=== PATIENT | female | born 1975 | race Caucasian/White ===

== ENCOUNTER → 2018-03-16 | Outpatient (CLI) | payer BC ==
[2018-03-16 09:17] LABS: Basophils % (A) 0 %; Eosinophils # (A) 0.1 k/uL (0-0.7); Eosinophils % (A) 2 %; HCT 40.4 % (34.0-46.0); HGB 12.9 gm/dL (11.4-16.0); Lymphocytes # (A) 1.4 k/uL (1.0-4.8); Lymphocytes % (A) 23 %; MCH 30.5 pg (25.0-35.0); MCV 95.1 fL (80.0-100.0); Mean Platelet Volume 6.3; Monocytes # (A) 0.5 k/uL (0-1.0); Monocytes % (A) 8 %; Neutrophils # (A) 4.1 k/uL (1.3-7.7); Neutrophils % (A) 65 %; Platelet Count 307 k/uL (150-450); RBC 4.25 m/uL (3.80-5.40); RDW 13.5 % (11.5-15.5); WBC 6.2 k/uL (3.8-10.6)
[2018-03-16 09:34] LABS: Anion Gap 11 mmol/L; Blood Urea Nitrogen 13 mg/dL (7-17); Carbon Dioxide 23 mmol/L (22-30); Chloride 108 mmol/L (98-107); Glucose 101 mg/dL (74-99); Potassium 4.2 mmol/L (3.5-5.1); Sodium 142 mmol/L (137-145)
== END | disposition home or self-care (01) ==
LOC: LABPAT 08:41
PROVIDERS: ATTEND Obstetrics & Gynecology
DX: Z01.812 Encounter for preprocedural laboratory examination (principal); N94.6 Dysmenorrhea, unspecified; N93.8 Other specified abnormal uterine and vaginal bleeding
CPT/HCPCS: 36415; 80051; 82565; 82947; 84520; 85025; 87086

== ENCOUNTER 2018-03-23 07:22 | Observation (INO) | payer BC ==
[2018-03-11 15:35] VITALS: BMI 37.5
[~2018-03-23 07:22] MED LIST: DEXAMETHASONE SOD PHOSPHATE 10 MG/ML 1 ML VIAL IV ONE; MIDAZOLAM 2 MG/2 ML VIAL IV PRN; ONDANSETRON 4 MG/2 ML VIAL IVP ONE; SCOPOLAMINE 1.5MG/72HR PATCH TRANSDERM ONE; ceFAZolin IN SWFI 2 GM/20 ML SYRINGE IVP ONE; fentaNYL (PF) 50 MCG/ML 2 ML AMP IV PRN
[2018-03-23] MEDS ORDERED: LIDOCAINE 1% 20 ML VIAL (10MG/ML) FOR IV START INTRADERMA ONE (08:03)
[2018-03-23] MEDS: LACTATED RINGERS 1,000 ML IV SCH ×2 (08:03→21:46)
[2018-03-23] MEDS ORDERED: fentaNYL (PF) 50 MCG/ML 2 ML AMP IV ONE (08:19)
[2018-03-23] MEDS ORDERED: diphenhydrAMINE 50 MG/ML 1 ML VIAL IVP ONE (08:50)
[2018-03-23] MEDS ORDERED: diphenhydrAMINE 50 MG/ML 1 ML VIAL IVP PRN (09:00)
[2018-03-23] MEDS ORDERED: HYDROmorphone 0.5 MG/0.5 ML SYRINGE IVP PRN (09:00)
[2018-03-23] MEDS ORDERED: ONDANSETRON 4 MG/2 ML VIAL IVP PRN ×2 (09:00→11:25)
[2018-03-23] MEDS ORDERED: NALOXONE 0.4 MG/ML 1 ML VIAL IV PRN (09:00)
[2018-03-23] MEDS ORDERED: GLYCOPYRROLATE 0.2 MG/ML 2 ML VIAL ONE (09:57)
[2018-03-23] MEDS ORDERED: MIDAZOLAM 2 MG/2 ML VIAL ONE (09:57)
[2018-03-23] MEDS ORDERED: ROCURONIUM BROMIDE 10 MG/ML 10 ML VIAL IV ONE (09:57)
[2018-03-23] MEDS ORDERED: LIDOCAINE 1% INJ 10MG/ML (20 ML MDV) ONE (09:57)
[2018-03-23] MEDS ORDERED: NEOSTIGMINE 1 MG/ML 10 ML VIAL ONE (09:57)
[2018-03-23] MEDS ORDERED: PROPOFOL 10 MG/ML 20 ML VIAL IV ONE (09:57)
[2018-03-23] MEDS ORDERED: SUCCINYLCHOLINE CHLORIDE 100 MG/5 ML SYR IV ONE (09:57)
[2018-03-23] MEDS ORDERED: KETOROLAC 30 MG/ML 1 ML VIAL ONE (09:57)
[2018-03-23] MEDS ORDERED: fentaNYL (PF) 50 MCG/ML 2 ML AMP ONE (09:57)
[2018-03-23] MEDS ORDERED: VASOPRESSIN 20 UNIT/ML 1 ML VIAL IV ONE (10:16)
[2018-03-23] MEDS ORDERED: BACITRACIN 500 UNIT/GM OINT 28.4 GM TUBE TOPICAL ONE (11:00)
--- NOTE | 2018-03-23 11:08 | P.OP ---
Date of Procedure: 03/23/18 Preoperative Diagnosis: Dysfunctional uterine bleeding Postoperative Diagnosis: Same Procedure(s) Performed: Total vaginal hysterectomy Surgeon: Adamaris French Subcontract Administrator #1: Latrell Miles Estimated Blood Loss (ml): 25 IV fluids (ml): 700 Urine output (ml): 100 Pathology: other (Uterus) Condition: stable Disposition: PACU Indications for Procedure: dysfunctional uterine bleeding Operative Findings: Normal appearing uterus. Neither ovary visualized vaginally. Second-degree cystocele Description of Procedure: After the patient was met in the preoperative holding area and all questions were answered, she was taken the operating room where anesthetic was administered without incident. She was in positioned, prepped and draped in lithotomy position. Bladder was drained for approximately 100 mL of clear urine. Weighted speculum was placed in the vagina and the cervix was grasped anteriorly with a single-tooth tenaculum. Dilute vasopressin solution was infused in the vaginal mucosa circumferentially about the cervix. Scalpel was then utilized to make a circumferential incision about the vaginal mucosa and cervix. The anterior and posterior vaginal mucosa with and bluntly away from the underlying cervix. The posterior peritoneum was entered sharply. Small speculum was removed and long weighted speculum was placed. Anterior vaginal mucosa was further dissected away from the cervix without difficulty. Kathleen clamps were utilized to clamp cut and suture ligated the uterosacral ligaments bilaterally. 0 Vicryl suture was utilized throughout. These were tagged. The bladder was further dissected anteriorly and the uterine vasculature was then clamped cut and suture ligated bilaterally. Additional bites were taken on either side with Kathleen clamps to allow for delivery of the posterior fundus. A window was made in the anterior peritoneum. Kathleen clamps were utilized to clamp both cornua and the specimen was amputated. 0 Vicryl suture was then utilized to doubly suture ligate each cornual pedicle. An additional okufem-de-hnmum suture was placed in the right pedicle area for hemostasis which was then noted Long weighted speculum was removed and short weighted speculum was placed. The peritoneum was closed in a pursestring fashion with 2-0 Vicryl suture. The uterosacral ligaments were then reapproximated in the midline incorporating the vaginal cuff. The cuff was then closed in an interrupted fashion anteriorly to posteriorly. Hemostasis was noted. The vagina was packed with bacitracin-soaked 2 inch bandage. Lorenzo catheter was replaced on the bladder and clear urine was noted. All counts reported to me as correct by the operating staff and the patient was awoken from anesthetic without incident and transported recovery area in stable condition.
[2018-03-23] MEDS ORDERED: NALBUPHINE 10 MG/ML VIAL (10ML MDV) IV ONE (11:22)
[2018-03-23] MEDS ORDERED: Acetaminophen-Codeine 300-30mg TAB PO PRN ×2 (11:25)
[2018-03-23] MEDS ORDERED: METOCLOPRAMIDE 5 MG/ML 2 ML VIAL IVP PRN (11:25)
[2018-03-23] MEDS ORDERED: IBUPROFEN 600 MG TAB PO PRN (11:25)
[2018-03-23] MEDS ORDERED: ALPRAZolam 0.25 MG TAB PO PRN (11:25)
[2018-03-23] MEDS ORDERED: SIMETHICONE 80 MG CHEWABLE PO PRN (11:25)
[2018-03-23] MEDS ORDERED: LACTATED RINGERS 1,000 ML IV ONE ×2 (11:57)
[2018-03-23] MEDS ORDERED: ACETAMINOPHEN IV (For NPO) 1,000 MG in EMPTY BAG 1 BAG IVPB ONE (12:00)
[2018-03-23] MEDS: diphenhydrAMINE 50 MG/ML 1 ML VIAL IVP PRN ×2 (15:54→21:47)
[2018-03-23] MEDS: KETOROLAC 30 MG/ML 1 ML VIAL IVP PRN (18:18)
[2018-03-23] MEDS: SENNOSIDES-DOCUSATE SODIUM 1 EACH TAB PO SCH (19:38)
[2018-03-23] MEDS: SYMBICORT 80-4.5 MCG INHALER INHALATION SCH (20:39)
[2018-03-23] MEDS ORDERED: MONTELUKAST 10 MG TAB PO SCH (21:00)
[2018-03-24] MEDS: KETOROLAC 30 MG/ML 1 ML VIAL IVP PRN ×2 (00:01→05:52)
[2018-03-24] MEDS: FLUTICASONE 50MCG/SPRAY NASAL 16GM EA NOSTRIL SCH ×2 (04:30→09:50)
[2018-03-24] MEDS: SENNOSIDES-DOCUSATE SODIUM 1 EACH TAB PO SCH ×2 (04:31→09:49)
[2018-03-24] MEDS: LACTATED RINGERS 1,000 ML IV SCH ×2 (06:16→07:00)
[2018-03-24] MEDS: SYMBICORT 80-4.5 MCG INHALER INHALATION SCH (07:10)
--- NOTE | 2018-03-24 08:37 | P.DS ---
Providers Date of admission: 03/24/18 01:44 Expected date of discharge: 03/24/18 Attending physician: Adamaris French Primary care physician: Poly Sandoval - Discharge Diagnosis(es) (1) Dysfunctional uterine bleeding Current Visit: Yes Status: Acute Hospital Course: 42 year old women admitted for TVH due to DUB on 03/23/18. Findings per Op Note. Post op course unremarkable. Evening of POD 0 able to ambulate and tolerate normal diet. Morning of POD1 able to void with catheter out and no vaginal bleeding. Pain well controlled. Labs pending. Plan for D/C home with instructions later in day. Plan - Discharge Summary Discharge Rx Participant: Yes New Discharge Prescriptions: New Ibuprofen [Motrin] 800 mg PO Q8HR PRN #30 tab PRN Reason: Pain No Action Sertraline [Zoloft] 25 mg PO DAILY Loratadine [Claritin] 10 mg PO DAILY ALPRAZolam [Xanax] 0.25 mg PO HS PRN PRN Reason: sleep Montelukast [Singulair] 10 mg PO HS Methylphenidate HCl [Ritalin] 10 mg PO BID Fluticasone/Salmeterol [Advair 250-50 Diskus] 2 inhalation PO BID Fluticasone Nasal [place] [Flonase Nasal [place]] 2 spr EA NOSTRIL BID Cholecalciferol [Vitamin D3] 5,000 unit PO DAILY Vitamin B Complex 1 each PO DAILY Wilder-3 Fatty Acids/Fish Oil [Fish Oil 1,000 mg Softgel] 1 each PO DAILY Magnesium 400 mg PO DAILY Lysine [l-Lysine] 500 mg PO DAILY Angle Control 1 tab PO DAILY Acetylcysteine [Nac] 500 mg PO DAILY Phytonadione [Vitamin K] 5 mg PO DAILY Discharge Medication List ALPRAZolam [Xanax] 0.25 mg PO HS PRN 03/11/18 [History] Acetylcysteine [Nac] 500 mg PO DAILY 03/11/18 [History] Cholecalciferol [Vitamin D3] 5,000 unit PO DAILY 03/11/18 [History] Fluticasone Nasal [place] [Flonase Nasal [place]] 2 spr EA NOSTRIL BID 03/11/18 [ History] Fluticasone/Salmeterol [Advair 250-50 Diskus] 2 inhalation PO BID 03/11/18 [ History] Angle Control 1 tab PO DAILY 03/11/18 [History] Loratadine [Claritin] 10 mg PO DAILY 03/11/18 [History] Lysine [l-Lysine] 500 mg PO DAILY 03/11/18 [History] Magnesium 400 mg PO DAILY 03/11/18 [History] Methylphenidate HCl [Ritalin] 10 mg PO BID 03/11/18 [History] Montelukast [Singulair] 10 mg PO HS 03/11/18 [History] Wilder-3 Fatty Acids/Fish Oil [Fish Oil 1,000 mg Softgel] 1 each PO DAILY [History] Sertraline [Zoloft] 25 mg PO DAILY 03/11/18 [History] Vitamin B Complex 1 each PO DAILY 03/11/18 [History] Phytonadione [Vitamin K] 5 mg PO DAILY 03/16/18 [History] Ibuprofen [Motrin] 800 mg PO Q8HR PRN #30 tab 03/24/18 [Rx] Follow up Appointment(s)/Referral(s): Adamaris French MD [STAFF PHYSICIAN] - 2 Weeks Discharge Disposition: HOME SELF-CARE
[2018-03-24] MEDS ORDERED: SERTRALINE 25 MG TAB PO SCH (09:00)
[2018-03-24 10:28] LABS: Basophils % (A) 0 %; Eosinophils # (A) 0.1 k/uL (0-0.7); Eosinophils % (A) 1 %; HCT 36.5 % (34.0-46.0); HGB 11.8 gm/dL (11.4-16.0); Lymphocytes # (A) 1.7 k/uL (1.0-4.8); Lymphocytes % (A) 20 %; MCH 30.6 pg (25.0-35.0); MCHC 32.4 g/dL (31.0-37.0); MCV 94.6 fL (80.0-100.0); Mean Platelet Volume 6.6; Monocytes # (A) 0.6 k/uL (0-1.0); Monocytes % (A) 7 %; Neutrophils % (A) 70 %; Platelet Count 278 k/uL (150-450); RBC 3.86 m/uL (3.80-5.40); RDW 13.5 % (11.5-15.5); WBC 8.5 k/uL (3.8-10.6)
--- NOTE | 2018-03-24 10:33 | P.PN ---
Progress Note - Text Progress Note Date: 03/24/18 42-year-old female status post vaginal hysterectomy. Postop day 1 status post Duramorph spinal. Patient doing well VAS is 1/10 in severity. Patient denies any pruritus, nausea vomiting, motor weakness, or sensory deficits. Patient will be discharged home today in stable condition.
[2018-03-24] MEDS ORDERED: ACETAMINOPHEN TAB 325 MG TAB PO PRN (11:10)
[2018-03-24 11:49] VITALS: BP 129/73; PULSE 64; RESP 18; TEMP 98.4
== END 2018-03-24 14:45 | disposition home or self-care (01) ==
LOC: OR 07:22 → 4FBP 11:11 → OR 03-24 01:44
PROVIDERS: ADMIT Obstetrics & Gynecology; ATTEND Obstetrics & Gynecology
DX: N93.8 Other specified abnormal uterine and vaginal bleeding (principal); D25.1 Intramural leiomyoma of uterus; N80.0 Endometriosis of uterus; N81.10 Cystocele, unspecified; N94.6 Dysmenorrhea, unspecified; N84.1 Polyp of cervix uteri; J45.909 Unspecified asthma, uncomplicated; F90.9 Attention-deficit hyperactivity disorder, unspecified type; M79.7 Fibromyalgia; E66.9 Obesity, unspecified; Z68.37 Body mass index [BMI] 37.0-37.9, adult; Z79.51 Long term (current) use of inhaled steroids; Z79.899 Other long term (current) drug therapy; Z88.6 Allergy status to analgesic agent; Z87.891 Personal history of nicotine dependence; Z98.51 Tubal ligation status; Z80.0 Family history of malignant neoplasm of digestive organs; F41.9 Anxiety disorder, unspecified
CPT/HCPCS: 58260; 81025; 86900; 86901; 85025; 86850; 88307; G0378; J2250; J1200; J1100; J2300; J2710; J2405; J2001; J3010; J1885 ×2; J0131; J0330; J2704; J0690

== ENCOUNTER → 2018-06-09 | Outpatient (CLI) | payer BC ==
[2018-06-09 13:14] LABS: Basophils % (A) 0 %; Eosinophils # (A) 0.1 k/uL (0-0.7); Eosinophils % (A) 1 %; HCT 41.6 % (34.0-46.0); HGB 13.7 gm/dL (11.4-16.0); Lymphocytes # (A) 1.9 k/uL (1.0-4.8); Lymphocytes % (A) 22 %; MCHC 32.9 g/dL (31.0-37.0); MCV 94.2 fL (80.0-100.0); Monocytes # (A) 0.5 k/uL (0-1.0); Monocytes % (A) 6 %; Neutrophils # (A) 5.8 k/uL (1.3-7.7); Neutrophils % (A) 69 %; Platelet Count 318 k/uL (150-450); RBC 4.41 m/uL (3.80-5.40); RDW 12.8 % (11.5-15.5); WBC 8.4 k/uL (3.8-10.6)
[2018-06-09 22:00] LABS: Cat Epith & Dander IgE <0.10 kU/L; Cockroach IgE <0.10 kU/L; Dog Dander IgE <0.10 kU/L
[2018-06-09 22:05] LABS: Alternaria alternata IgE 0.15 kU/L; Birch IgE <0.10 kU/L; Elm IgE <0.10 kU/L; Maple (Box Elder) IgE <0.10 kU/L; Oak IgE <0.10 kU/L; Ragweed,Common IgE <0.10 kU/L; Red Top (Bentgrass) IgE 0.35 kU/L
[2018-06-10 14:20] LABS: IgG Subclass 3 17.7 mg/dL (11.0-85.0); IgG Subclass 4 7.9 mg/dL (3.0-175.0)
== END | disposition home or self-care (01) ==
LOC: LABWHC1 11:34
PROVIDERS: ATTEND Internal Medicine Critical Care Medicine
DX: J45.909 Unspecified asthma, uncomplicated (principal)
CPT/HCPCS: 36415; 82785; 82787; 85025; 86003

== ENCOUNTER → 2018-10-02 | Outpatient (CLI) | payer BC ==
--- NOTE | 2018-10-10 10:27 | MM ---
Reason for exam: screening (asymptomatic). History: Taking progesterone for 2 years beginning at age 41. MG 3D Screening Mammo W/Cad Bilateral CC and MLO view(s) were taken. There are scattered fibroglandular densities. No significant changes when compared with prior studies. ASSESSMENT: Benign, BI-RAD 2 RECOMMENDATION: Routine screening mammogram of both breasts in 1 year.
== END ==
LOC: RADMAMWWP 14:35
PROVIDERS: ATTEND Obstetrics & Gynecology
DX: Z12.31 Encounter for screening mammogram for malignant neoplasm of breast (principal)
CPT/HCPCS: 77063; 77067

== ENCOUNTER → 2019-03-15 | Outpatient (CLI) | payer BC ==
--- NOTE | 2019-03-15 12:18 | US ---
EXAMINATION TYPE: US venous doppler duplex LE LT DATE OF EXAM: 03/15/2019 12:05 PM COMPARISON: NONE CLINICAL HISTORY: Calf pain M25.562. No hx of blood clots or blood thinners. No redness or swelling. SIDE PERFORMED: Left TECHNIQUE: The lower extremity deep venous system is examined utilizing real time linear array sonog mauricio with graded compression, doppler sonography and color-flow sonography. VESSELS IMAGED: External Iliac Vein (EIV) Common Femoral Vein Deep Femoral Vein Greater Saphenous Vein * Femoral Vein Popliteal Vein Small Saphenous Vein * Proximal Calf Veins (* superficial vessels) Grayscale, color doppler, spectral doppler imaging performed of the deep veins of the left lower extr emity. There is normal flow, compressibility, vascular waveforms. Left Leg: Negative for DVT. Complex fluid collection seen posterior knee = 7.1 x 4.1 x 2.0 cm IMPRESSION: 1. No sonographic evidence of deep venous thrombosis within the left lower extremity. 2. Complex fluid collection in the popliteal fossa, likely a complicated Perdue's cyst. Given the inte rnal complexity MRI of the left knee could be performed if there is further clinical concern.
== END | disposition home or self-care (01) ==
LOC: RADUSWWP 11:36
PROVIDERS: ATTEND Orthopaedic Surgery
DX: M17.12 Unilateral primary osteoarthritis, left knee (principal); I80.9 Phlebitis and thrombophlebitis of unspecified site

== ENCOUNTER 2020-10-04 10:11 | Day surgery (SDC) | payer BC ==
[2020-10-03 13:58] VITALS: BMI 37.9
--- NOTE | 2020-10-04 09:45 | P.GSHP ---
History of Present Illness H&P Date: 10/04/20 CHIEF COMPLAINT: Gastrointestinal bleed with anemia HISTORY OF PRESENT ILLNESS: The patient is a 45-year-old male who presents with gastrointestinal bleed with anemia Upper and lower endoscopy were offered for further evaluation and management. PAST MEDICAL HISTORY: Please see list. PAST SURGICAL HISTORY: Please see list. MEDICATIONS: Please see list. ALLERGIES: Please see list. SOCIAL HISTORY: No illicit drug use FAMILY HISTORY: No reports of Crohn disease or ulcerative colitis. REVIEW OF ORGAN SYSTEMS: CONSTITUTIONAL: No reports of fevers or chills. PHYSICAL EXAM: VITAL SIGNS: Stable GENERAL: Well-developed pleasant in no acute distress. HEENT: No scleral icterus. Extraocular movements grossly intact. Moist buccal mucosa. NECK: Supple without lymphadenopathy. CHEST: Unlabored respirations. Equal bilateral excursions. CARDIOVASCULAR: Regular rate and rhythm. Distal 2+ pulses. ABDOMEN: Soft, nondistended. MUSCULOSKELETAL: No clubbing, cyanosis, or edema. ASSESSMENT: 1. Gastrointestinal bleed with anemia. PLAN: 1. Recommend proceeding with an upper and lower endoscopy Past Medical History Past Medical History: Asthma, Fibromyalgia, Musculoskeletal Disorder Additional Past Medical History / Comment(s): bleeding with stool since 09-06-20,hx bronchitis, herniated disc neck and back History of Any Multi-Drug Resistant Organisms: None Reported Past Surgical History: Hysterectomy, Tonsillectomy, Tubal Ligation, Uterine Ablation Additional Past Surgical History / Comment(s): nodule removed from vocal cord Past Anesthesia/Blood Transfusion Reactions: No Reported Reaction Smoking Status: Former smoker - Past Family History Father Family Medical History: Cancer Additional Family Medical History / Comment(s): pancreatic Medications and Allergies Home Medications Medication Instructions Recorded Confirmed Type ALPRAZolam [Xanax] 0.25 mg PO HS PRN 10/03/20 10/03/20 History Albuterol Inhaler [Ventolin Hfa 2 puff INHALATION RT-QID PRN 10/03/20 10/03/20 History Inhaler] FLUoxetine HCL [PROzac] 10 mg PO QAM 10/03/20 10/03/20 History Loratadine-Pseudoeph 10-240 mg 1 tab PO DAILY 10/03/20 10/03/20 History [Claritin-D 24 Hour] Allergies Allergy/AdvReac Type Severity Reaction Status Date / Time naproxen AdvReac GI upset Verified 10/03/20 13:48
[2020-10-04 10:34] VITALS: TEMP 97.1
[2020-10-04] MEDS ORDERED: LACTATED RINGERS 1,000 ML IV ONE (10:39)
[2020-10-04] MEDS ORDERED: LIDOCAINE 1% (10MG/ML) FOR IV START INTRADERMA ONE (10:40)
[2020-10-04] MEDS ORDERED: PROPOFOL 10 MG/ML 20 ML VIAL IV ONE (10:42)
[2020-10-04] MEDS ORDERED: LIDOCAINE 1% INJ 10MG/ML (20 ML MDV) ONE (10:42)
--- NOTE | 2020-10-04 10:56 | P.PCN ---
Date of Procedure: 10/04/20 Description of Procedure: PREOPERATIVE DIAGNOSIS: Anemia Gastrointestinal hemorrhage POSTOPERATIVE DIAGNOSIS: Acute gastritis with recent bleeding Acute gastric ulcer Diaphragmatic hiatal hernia OPERATION: Esophagogastroduodenoscopy with biopsies along antrum. SURGEON: Rosemary Castro MD ANESTHESIA: MAC. INDICATIONS: The patient is a 45-year-old female who presents with a history of reflux disease. Benefits and risks of the procedure were described. Informed consent was obtained. DESCRIPTION: The patient was brought into the endoscopy suite and laid in the left lateral decubitus position. An Olympus gastroscope was passed along the posterior oropharynx down to the distal esophagus where the squamocolumnar junction was encountered at 35 cm from the incisors. The stomach was entered and no bile reflux was found. Additional findings are listed below. Biopsies with cold forceps were obtained of the antrum. The first through third portion of the duodenum was examined and unremarkable. Retroflexion of the scope confirmed Hill grade 1 lower esophageal valve. The squamocolumnar junction demonstrated LA grade B erosive esophagitis. The stomach was desufflated. The patient tolerated the procedure well. FINDINGS: Squamocolumnar junction 35 cm from the incisors. Diaphragmatic hiatus at 37 cm. Hiatal hernia, 2 cm Hill grade 1 lower esophageal valve. LA grade B erosive esophagitis. No active duodenitis. Chronic gastritis with recent bleed Acute gastric ulcers gastric body with recent bleeding RECOMMENDATIONS: Omeprazole 40 mg twice daily for 2 weeks
--- NOTE | 2020-10-04 11:16 | P.PCN ---
Date of Procedure: 10/04/20 Description of Procedure: PREOPERATIVE DIAGNOSIS: Gastrointestinal bleeding with anemia POSTOPERATIVE DIAGNOSIS: Colitis with mild bleeding Descending colon stricture Internal hemorrhoid OPERATION: Colonoscopy to the cecum, ileocecal valve and appendiceal orifice. Colonoscopy with random biopsies descending colon SURGEON: Rosemary Castro MD. ANESTHESIA: MAC. INDICATIONS: The patient is a 45-year-old female who presents with gastrointestinal bleed including anemia. Benefits and risks were described and informed consent was obtained. DESCRIPTION OF PROCEDURE: The patient had undergone Suprep. He had been brought into the operating room and laid in the left lateral decubitus position. After adequate intravenous sedation, the rectum was examined with 2% lidocaine jelly. External hemorrhoids were encountered. The rectal tone was within normal limits. No lesions were palpated in the rectal vault. An Olympus colonoscope was advanced until the cecum, ileocecal valve and appendiceal orifice were clearly viewed. The prep was excellent. Scattered diverticulosis was encountered. No colonic polyps were found. Random biopsies were taken of the cecum. Focal colitis along the splenic flexure and proximal descending colon was identified with recent bleed. Retroflexion of the scope demonstrated grade 1 internal hemorrhoids with recent inflammation. The colon was desufflated. The patient had tolerated the procedure well. Withdrawal time was over 6 minutes. FINDINGS: Aronchick preparation quality scale 1 (1-5) Internal hemorrhoids, grade 1 with inflammation External prolapsed hemorrhoids. No arteriovenous malformations. No adenomatous polyps. Recent bleed descending colon RECOMMENDATIONS: Lower endoscopy as needed Plan - Discharge Summary Discharge Rx Participant: No New Discharge Prescriptions: New Omeprazole [PriLOSEC] 40 mg PO DAILY #14 cap Continue Albuterol Inhaler [Ventolin Hfa Inhaler] 2 puff INHALATION RT-QID PRN PRN Reason: sob Loratadine-Pseudoeph 10-240 mg [Claritin-D 24 Hour] 1 tab PO DAILY FLUoxetine HCL [PROzac] 10 mg PO QAM ALPRAZolam [Xanax] 0.25 mg PO HS PRN PRN Reason: Anxiety Discharge Medication List ALPRAZolam [Xanax] 0.25 mg PO HS PRN 10/03/20 [History] Albuterol Inhaler [Ventolin Hfa Inhaler] 2 puff INHALATION RT-QID PRN 10/03/20 [History] FLUoxetine HCL [PROzac] 10 mg PO QAM 10/03/20 [History] Loratadine-Pseudoeph 10-240 mg [Claritin-D 24 Hour] 1 tab PO DAILY 10/03/20 [History] Omeprazole [PriLOSEC] 40 mg PO DAILY #14 cap 10/04/20 [Rx] Follow up Appointment(s)/Referral(s): Rosemary Castro MD [STAFF PHYSICIAN] - 10/10/20 Patient Instructions/Handouts: Hemorrhoids (DC), Microscopic Colitis (DC), Peptic Ulcer (DC), Diet for Stomach Ulcers and Gastritis (ED), Gastritis (DC) Discharge Disposition: HOME SELF-CARE
[2020-10-04 12:06] VITALS: BP 124/61; PULSE 76; RESP 18
[2020-10-04 12:42] LABS: Basophils # (A) 0.1 k/uL (0-0.2); Basophils % (A) 1 %; Eosinophils % (A) 0 %; Lymphocytes # (A) 1.2 k/uL (1.0-4.8); Lymphocytes % (A) 14 %; MCH 30.8 pg (25.0-35.0); MCHC 34.1 g/dL (31.0-37.0); MCV 90.5 fL (80.0-100.0); Mean Platelet Volume 7.1; Monocytes # (A) 0.5 k/uL (0-1.0); Monocytes % (A) 5 %; Neutrophils # (A) 7.1 k/uL (1.3-7.7); Neutrophils % (A) 79 %; Platelet Count 293 k/uL (150-450); RBC 4.87 m/uL (3.80-5.40); RDW 12.5 % (11.5-15.5); WBC 8.9 k/uL (3.8-10.6)
[2020-10-04 22:50] LABS: % Iron Saturation 17.77 (12.00-45.00)
[2020-10-04 22:56] LABS: Ferritin 160.4 ng/mL (10.0-291.0)
== END 2020-10-04 12:15 | disposition home or self-care (01) ==
LOC: ORWHC2ENDO 10:11
PROVIDERS: ATTEND Surgery Plastic and Reconstructive Surgery
DX: K57.31 Diverticulosis of large intestine without perforation or abscess with bleeding (principal); K64.8 Other hemorrhoids; K52.9 Noninfective gastroenteritis and colitis, unspecified; K64.0 First degree hemorrhoids; K29.51 Unspecified chronic gastritis with bleeding; K25.0 Acute gastric ulcer with hemorrhage; K44.9 Diaphragmatic hernia without obstruction or gangrene; D64.9 Anemia, unspecified; K22.11 Ulcer of esophagus with bleeding; K21.01 Gastro-esophageal reflux disease with esophagitis, with bleeding; J45.909 Unspecified asthma, uncomplicated; M79.7 Fibromyalgia; M50.20 Other cervical disc displacement, unspecified cervical region; M51.9 Unspecified thoracic, thoracolumbar and lumbosacral intervertebral disc disorder; K08.409 Partial loss of teeth, unspecified cause, unspecified class; Z87.09 Personal history of other diseases of the respiratory system; Z90.710 Acquired absence of both cervix and uterus; Z90.89 Acquired absence of other organs; Z98.51 Tubal ligation status; Z98.890 Other specified postprocedural states; Z87.891 Personal history of nicotine dependence; Z79.899 Other long term (current) drug therapy; Z88.6 Allergy status to analgesic agent; Z80.0 Family history of malignant neoplasm of digestive organs
CPT/HCPCS: 88305; 82728; 83540; 83550; 85025; 45380; 43239; J2001; J2704

== ENCOUNTER → 2020-10-23 | Outpatient (CLI) | payer BC ==
--- NOTE | 2020-10-23 09:03 | CT ---
EXAMINATION TYPE: CT abdomen pelvis w con DATE OF EXAM: 10/23/2020 COMPARISON: None HISTORY: Lower abdominal pain CT DLP: 1603 mGycm CONTRAST: CT scan of the abdomen and pelvis is performed with Oral Contrast and with IV Contrast, patient injec maria m with 100 ml mL of Isovue 300. FINDINGS: LUNG BASES-: No visible nodule. No infiltrate. LIVER/GB: No calcified gallstones. No space occupying hepatic lesion. Biliary tree is of normal ca liber. PANCREAS: No inflammation. No distinct mass. SPLEEN: No splenic enlargement. No lesion seen. ADRENALS: No nodule. No thickening. KIDNEYS/BLADDER: No hydronephrosis. No nephrolithiasis. No distinct renal mass. Urinary bladder g rossly unremarkable. BOWEL: Normal appendix. Normal bowel caliber. No inflammation. GENITAL ORGANS: No gross abnormality. LYMPH NODES: No greater than 1cm abdominal or pelvic lymph nodes are appreciated. AORTA: No significant abnormality. OSSEOUS STRUCTURES: No significant abnormality is seen. OTHER: No significant additional abnormality is seen. IMPRESSION: 1. No distinct abnormality to account for the patient's symptoms.
== END | disposition home or self-care (01) ==
LOC: RADCTMAIN 06:47
PROVIDERS: ATTEND Surgery Plastic and Reconstructive Surgery
DX: R10.30 Lower abdominal pain, unspecified (principal)
CPT/HCPCS: 74177; Q9967

== ENCOUNTER 2020-12-29 11:22 | Emergency (ER) | payer BC ==
[2020-12-29 11:37] VITALS: TEMP 98
--- NOTE | 2020-12-29 12:54 | XR ---
EXAMINATION TYPE: XR KUB DATE OF EXAM: 12/29/2020 Comparison: None Clinical History: 45-year-old female GI bleed Findings: Lung bases are clear. No evidence for free intraperitoneal air. Mildly distended small bowel loop in the left upper quadrant measures 3.5 cm with small air-fluid lev els. No evidence of dilated small bowel elsewhere. Scattered mild colonic air. No suspicious calcifications. Impression: 1. Nonspecific, overall nonobstructive bowel gas pattern. 2. A few small scattered air-fluid levels. A single mildly distended small bowel loop in the left upp er quadrant. Consider enteritis or ileus.
[2020-12-29 14:14] LABS: Basophils % (A) 1 %; Eosinophils # (A) 0.1 k/uL (0-0.7); Eosinophils % (A) 2 %; HCT 42.5 % (34.0-46.0); HGB 14.7 gm/dL (11.4-16.0); Lymphocytes # (A) 1.6 k/uL (1.0-4.8); Lymphocytes % (A) 24 %; MCH 30.9 pg (25.0-35.0); MCHC 34.5 g/dL (31.0-37.0); MCV 89.8 fL (80.0-100.0); Mean Platelet Volume 7.1; Monocytes # (A) 0.4 k/uL (0-1.0); Monocytes % (A) 7 %; Neutrophils # (A) 4.2 k/uL (1.3-7.7); Neutrophils % (A) 65 %; Platelet Count 328 k/uL (150-450); RBC 4.74 m/uL (3.80-5.40); RDW 12.7 % (11.5-15.5); WBC 6.5 k/uL (3.8-10.6)
[2020-12-29 14:51] LABS: ALT 24 U/L (4-34); AST 30 U/L (14-36); African American GFR (CKD) >90 (>60 ml/min/1.73 sqM); Albumin 4.5 g/dL (3.5-5.0); Alkaline Phosphatase 89 U/L (38-126); Anion Gap 10 mmol/L; Blood Urea Nitrogen 11 mg/dL (7-17); Calcium 9.7 mg/dL (8.4-10.2); Carbon Dioxide 23 mmol/L (22-30); Chloride 105 mmol/L (98-107); Glucose 92 mg/dL (74-99); Non-African American GFR(CKD) >90 (>60 ml/min/1.73 sqM); Sodium 138 mmol/L (137-145); Total Bilirubin 0.6 mg/dL (0.2-1.3); Total Protein 7.3 g/dL (6.3-8.2)
--- NOTE | 2020-12-29 15:35 | ED ---
GI Bleed HPI - General Chief complaint: GI Bleed Stated complaint: Blood in Stool Time Seen by Provider: 12/29/20 12:56 Source: patient Mode of arrival: ambulatory Limitations: no limitations - History of Present Illness Initial comments: patient is a 45-year-old female presenting to the emergency department with concerns of blood in her stool over the past few days. Patient states she had this issue earlier this year, had a colonoscopy and a CT of her abdomen and pelvis, no acute abnormalities seen, there was some internal hemorrhoids present, diverticulosis. Patient states over the past few days she has noticed increase in the bleeding, pressure in her rectum. She denies any fevers or chills, no abdominal pain, no nausea or vomiting. She states her bowel movements have been irregular but did go yesterday. She denies any diarrhea. She has no further complaints at this time. - Related Data Home Medications Medication Instructions Recorded Confirmed ALPRAZolam [Xanax] 0.25 mg PO HS PRN 10/03/20 12/29/20 Albuterol Inhaler [Ventolin Hfa 2 puff INHALATION RT-QID PRN 10/03/20 12/29/20 Inhaler] FLUoxetine HCL [PROzac] 10 mg PO DAILY 10/03/20 12/29/20 Loratadine-Pseudoeph 10-240 mg 1 tab PO DAILY PRN 10/03/20 12/29/20 [Claritin-D 24 Hour] valACYclovir [Valtrex] 500 mg PO DAILY PRN 12/29/20 12/29/20 Allergies Allergy/AdvReac Type Severity Reaction Status Date / Time naproxen AdvReac GI upset Verified 12/29/20 13:30 Review of Systems ROS Statement: Those systems with pertinent positive or pertinent negative responses have been documented in the HPI. ROS Other: All systems not noted in ROS Statement are negative. Past Medical History Past Medical History: Asthma, Fibromyalgia, Musculoskeletal Disorder Additional Past Medical History / Comment(s): bleeding with stool since 09-06-20,hx bronchitis, herniated disc neck and back, History of Any Multi-Drug Resistant Organisms: None Reported Past Surgical History: Hysterectomy, Tonsillectomy, Tubal Ligation, Uterine Ablation Additional Past Surgical History / Comment(s): nodule removed from vocal cord, Past Anesthesia/Blood Transfusion Reactions: No Reported Reaction Past Psychological History: ADD/ADHD, Anxiety Smoking Status: Former smoker Past Alcohol Use History: Occasional Past Drug Use History: Marijuana - Past Family History Father Family Medical History: Cancer Additional Family Medical History / Comment(s): pancreatic General Exam - General Exam Comments Initial Comments: GENERAL: Patient is well-developed and well-nourished. Patient is nontoxic and in no acute distress. HEAD: Atraumatic, normocephalic. EYES: Pupils equal round and reactive to light, extraocular movements intact, sclera anicteric, conjunctiva are normal. Eyelids were unremarkable. ENT: TMs normal, nares patent, oropharynx clear without exudates. Moist mucous membranes. NECK: Normal range of motion, supple without lymphadenopathy or JVD. LUNGS: Unlabored respirations. Breath sounds clear to auscultation bilaterally and equal. No wheezes rales or rhonchi. HEART: Regular rate and rhythm without murmurs, rubs or gallops. ABDOMEN: Soft, nontender, normoactive bowel sounds. No guarding, no rebound. No masses appreciated. : Deferred MUSCULOSKELETAL: Normal extremities with adequate strength and normal range of motion, no pitting or edema. No clubbing or cyanosis. NEUROLOGICAL: Patient is alert and oriented x 3. Motor and sensory are also intact. Cranial nerves II through XII grossly intact. Symmetrical smile. Normal speech, normal gait. PSYCH: Normal mood, normal affect. SKIN: Warm, Dry, normal turgor, no rashes or lesions noted. Limitations: no limitations Rectal exam: Present: normal inspection, normal rectal tone, heme (-) stool, hemorrhoids (small external hemorrhoid noted). Absent: fecal impaction Course Vital Signs 12/29/20 11:33 Temperature 98.0 F Pulse Rate 68 Respiratory 18 Rate Blood Pressure 132/83 O2 Sat by Pulse 100 Oximetry Medical Decision Making - Medical Decision Making patient is a 45-year-old female here with concerns of hematochezia over the past few days. Her vital signs are stable, her exam is unremarkable, heme occult is negative. Labs are also unremarkable, normal hemoglobin. Exam did reveal a small external hemorrhoid, previous colonoscopy reveals an internal hemorrhoid. I discussed with patient that I feel like her bleeding is from irritation of these hemorrhoids. I did recommend a daily stool softener such as MiraLAX. I'll also give her referral to a GI specialist is. Patient is stable for disch arge, she is in agreement with this plan of care. Return parameters were discussed with her and she verbalized understanding. Case discussed with Dr. Tillman. - Lab Data Result diagrams: 12/29/20 11:45 12/29/20 11:45 Lab Results 12/29/20 12/29/20 12/29/20 Range/Units 11:45 11:45 11:45 WBC 6.5 (3.8-10.6) k/uL RBC 4.74 (3.80-5.40) m/uL Hgb 14.7 (11.4-16.0) gm/dL Hct 42.5 (34.0-46.0) % MCV 89.8 (80.0-100.0) fL MCH 30.9 (25.0-35.0) pg MCHC 34.5 (31.0-37.0) g/dL RDW 12.7 (11.5-15.5) % Plt Count 328 (150-450) k/uL MPV 7.1 Neutrophils % 65 % Lymphocytes % 24 % Monocytes % 7 % Eosinophils % 2 % Basophils % 1 % Neutrophils # 4.2 (1.3-7.7) k/uL Lymphocytes # 1.6 (1.0-4.8) k/uL Monocytes # 0.4 (0-1.0) k/uL Eosinophils # 0.1 (0-0.7) k/uL Basophils # 0.0 (0-0.2) k/uL APTT 22.6 (22.0-30.0) sec Sodium 138 (137-145) mmol/L Potassium 4.0 (3.5-5.1) mmol/L Chloride 105 (98-107) mmol/L Carbon Dioxide 23 (22-30) mmol/L Anion Gap 10 mmol/L BUN 11 (7-17) mg/dL Creatinine 0.69 (0.52-1.04) mg/dL Est GFR (CKD-EPI)AfAm >90 (>60 ml/min/1.73 sqM) Est GFR (CKD-EPI)NonAf >90 (>60 ml/min/1.73 sqM) Glucose 92 (74-99) mg/dL Calcium 9.7 (8.4-10.2) mg/dL Total Bilirubin 0.6 (0.2-1.3) mg/dL AST 30 (14-36) U/L ALT 24 (4-34) U/L Alkaline Phosphatase 89 (38-126) U/L Total Protein 7.3 (6.3-8.2) g/dL Albumin 4.5 (3.5-5.0) g/dL Stool Occult Blood (Negative) Blood Type Blood Type Recheck Bld Type Recheck Status Antibody Screen Spec Expiration Date 12/29/20 12/29/20 Range/Units 13:50 13:55 WBC (3.8-10.6) k/uL RBC (3.80-5.40) m/uL Hgb (11.4-16.0) gm/dL Hct (34.0-46.0) % MCV (80.0-100.0) fL MCH (25.0-35.0) pg MCHC (31.0-37.0) g/dL RDW (11.5-15.5) % Plt Count (150-450) k/uL MPV Neutrophils % % Lymphocytes % % Monocytes % % Eosinophils % % Basophils % % Neutrophils # (1.3-7.7) k/uL Lymphocytes # (1.0-4.8) k/uL Monocytes # (0-1.0) k/uL Eosinophils # (0-0.7) k/uL Basophils # (0-0.2) k/uL APTT (22.0-30.0) sec Sodium (137-145) mmol/L Potassium (3.5-5.1) mmol/L Chloride (98-107) mmol/L Carbon Dioxide (22-30) mmol/L Anion Gap mmol/L BUN (7-17) mg/dL Creatinine (0.52-1.04) mg/dL Est GFR (CKD-EPI)AfAm (>60 ml/min/1.73 sqM) Est GFR (CKD-EPI)NonAf (>60 ml/min/1.73 sqM) Glucose (74-99) mg/dL Calcium (8.4-10.2) mg/dL Total Bilirubin (0.2-1.3) mg/dL AST (14-36) U/L ALT (4-34) U/L Alkaline Phosphatase (38-126) U/L Total Protein (6.3-8.2) g/dL Albumin (3.5-5.0) g/dL Stool Occult Blood Negative (Negative) Blood Type A Positive Blood Type Recheck A Pos Bld Type Recheck Status No Antibody Screen NEGATIVE Spec Expiration Date 01/01/20212349 Disposition Clinical Impression: Hematochezia, Hemorrhoid Disposition: HOME SELF-CARE Condition: Stable Instructions (If sedation given, give patient instructions): Gastrointestinal Bleeding (ED) Additional Instructions: Please return to the Emergency Department if symptoms worsen or any other concerns. Please follow-up with your surgeon and/or GI specialist. Recommend MiraLAX for a stool softener once daily. Is patient prescribed a controlled substance at d/c from ED?: No Referrals: Poly Sandoval MD [Primary Care Provider] - 1-2 days Briseyda Barrientos MD [STAFF PHYSICIAN] - 1-2 days Time of Disposition: 15:35
[2020-12-29 15:55] VITALS: BP 129/79; PULSE 74; RESP 17
== END 2020-12-29 15:55 | disposition home or self-care (01) ==
LOC: EC 11:22
DX: K64.9 Unspecified hemorrhoids (principal); K92.1 Melena; J45.909 Unspecified asthma, uncomplicated; Z87.891 Personal history of nicotine dependence
CPT/HCPCS: 36415; 74018; 80053; 82272; 85025; 85730; 86850; 86900; 86901; 99285

== ENCOUNTER → 2022-07-29 | Outpatient (CLI) | payer BC ==
--- NOTE | 2022-07-30 08:58 | MM ---
Reason for Exam: Screening (asymptomatic). Last mammogram was performed 3 year(s) and 10 month(s) ago. Patient History: Menarche at age 12. First Full-Term at age 20. Hysterectomy at age 42. Progesterone, starting at age 41 for 2 years. Maternal grandmother had ovarian cancer. Maternal aunt had ovarian cancer. Risk Values: Emmy 5 year model risk: 0.8%. NCI Lifetime model risk: 8.4%. Prior Study Comparison: 10/02/2018 Bilateral Screening Mammogram, [facility]. Tissue Density: There are scattered fibroglandular densities. Findings: Analyzed By CAD. There is no suspicious group of microcalcifications or new suspicious mass in either breast. No significant change from prior exam. Overall Assessment: Negative, BI-RAD 1 Management: Screening Mammogram of both breasts in 1 year. A clinical breast exam by your physician is recommended on an annual basis and results should be correlated with mammographic findings. Electronically signed and approved by: Dario Rebolledo D.O.
== END | disposition home or self-care (01) ==
LOC: RADMAMWWP 13:33
PROVIDERS: ATTEND Family Medicine
DX: Z12.31 Encounter for screening mammogram for malignant neoplasm of breast (principal); Z80.41 Family history of malignant neoplasm of ovary
CPT/HCPCS: 77063; 77067